=== PATIENT | female | born 1965 | race Caucasian/White ===

== ENCOUNTER 2018-10-26 14:45 | Observation (INO) ==
[2018-10-26] MEDS ORDERED: OXYCODONE HCL PO PRN (15:22)
[2018-10-26] MEDS ORDERED: ACETAMINOPHEN PO PRN (15:22)
[2018-10-26] MEDS ORDERED: XANAX PO PRN (15:22)
[2018-10-26] MEDS ORDERED: SODIUM CHLORIDE 0.9% INJ ONE (16:06)
[2018-10-26 17:02] LABS: BASO# 0.03 X1000 (0.0-0.2); BASO% 0.5 % (0.0-0.8); EOS# 0.31 X1000 (0.0-0.7); HEMATOCRIT 38.3 % (37.0-47.0); HEMOGLOBIN 11.7 g/dL (12.0-16.0); LYMPH# 1.79 X1000 (1.2-3.4); LYMPH% 28.9 % (20.5-51.1); MCH 25.3 PG (27-31); MCHC 30.5 g/dL (33-37); MCV 82.7 FL (81-99); MONO# 0.42 X1000 (0.11-0.59); MONO% 6.8 % (1.7-9.3); MPV 9.9 FL (7.4-10.4); NEUT# 3.64 X1000 (1.4-6.5); NEUT% 58.8 % (42.2-75.2); PLT 271 X1000 (130-400); RBC 4.63 XMIL (4.2-5.4); RDW 15.6 % (11.5-14.5); WBC 6.19 X1000 (4.8-10.8)
[2018-10-26] MEDS: TYLENOL PO PRN (17:07)
[2018-10-26] MEDS: ROCEPHIN 1 GM in NS 50 ML IV SCH (17:07)
[2018-10-26] MEDS: LOVENOX SUBQ SCH (17:08)
[2018-10-26] MEDS: XANAX PO SCH (17:17)
[2018-10-26] MEDS: FLAGYL 500 MG/NS 500 MG/100 ML IVPB IV SCH ×2 (17:18→22:45)
[2018-10-26 17:28] LABS: AGAP 14; BUN 7 mg/dL (8-22); CALCIUM 8.6 mg/dL (8.8-10.2); CHLORIDE 98 mmol/L (98-107); COSMO 281; CREATININE 0.6 mg/dL (0.5-0.9); ESTIMATED GFR > 60; GLUCOSE 91 mg/dL (70-104); POTASSIUM 3.4 mmol/L (3.5-5.1); SODIUM 142 mmol/L (136-145); TCO2 30 mmol/L (25-35)
--- NOTE | 2018-10-26 18:49 | Diag Imaging Result Doc PS360 ---
CT ABDOMEN/PELVIS W/WO CONTRAS - 10/26/2018 INDICATION: recurrent diverticulitis COMPARISON: 08/30/2011 FINDINGS: The lung bases are clear and the heart size is normal. The liver, gallbladder, spleen, pancreas, adrenals, and kidneys are normal. No radiodense renal stones. No hydronephrosis or hydroureter. No bowel obstruction or inflammation. Uterus is absent. Urinary bladder and rectum are normal. Bones are intact. IMPRESSION: Negative exam. This exam was performed using automated exposure control, adjustment of mA or kV according to patient size, and/or use of iterative reconstruction technique Electronically signed by David Russell 10/26/2018 6:47 PM
--- NOTE | 2018-10-26 19:50 | HISTORY AND PHYSICAL ---
Mrs. Helena Zelaya is a 53-year-old lady with a history of multiple medical problems including depression, headache secondary to pseudotumor cerebri and gastroesophageal reflux disease who is followed as an outpatient by Dr. Aaron Blum. She presented to the ER with a 3- day history of crampy left lower quadrant abdominal pain in association with nausea, dry heaves, and explosive watery diarrhea. She saw bright red blood in her stools. She reports that the crampy abdominal pain has intensified when she tries to eat, when she tries to eat she has nausea and vomiting. She has had a history of recurrent diverticulitis in the past and has had a partial colon resection. PAST MEDICAL HISTORY: As above. PAST SURGICAL HISTORY: Hysterectomy, , partial colon resection. ALLERGIES: Hydromorphone. FAMILY HISTORY: Noncontributory. SOCIAL HISTORY: She has never smoked. She does consume alcoholic beverages. She is and lives with her spouse. MEDICATIONS: Xanax 1 mg t.i.d., omeprazole 40 mg daily, venlafaxine ER 75 mg daily. REVIEW OF SYSTEMS: She denies any recent weight gain or weight loss.HEENT: No loss of visual or auditory acuity. CV: No chest pain, palpitations or anginal equivalents. Pulmonary: No shortness of breath, PND, orthopnea. GI: No reflux, dysphagia, melena, hematochezia, [ change in bowel habits or rectal bleeding. Endocrine: No polyuria, no polydipsia. No cold or heat intolerance. Skin: No easy bruisability. : No leakage of urine with coughing or laughing . Neuro: No migraines or seizures. PHYSICAL EXAM: This is a acutely ill-appearing 53-year-old lady in no apparent distress. Temperature 98.8 degrees, pulse 70, respirations 24, BP 169/87. HEENT: Fundi with sharp discs and vessels. Pupils equal, round, reactive to light. Extraocular eye movements intact. TMs without bullae. NECK: Supple. No masses, JVD or bruits. CV: Regular rate and rhythm. LUNGS: Clear. ABDOMEN: Marked left lower quadrant tenderness to deep palpation. There is some guarding. She has hypoactive bowel sounds. EXTREMITIES: Without edema. SKIN: No palpable purpura. NEURO: Nonfocal. LABS: Various laboratory studies were obtained. A CBC demonstrated a white count of 6.1, hemoglobin 1.7, hematocrit 38.3, platelet count 271,000. Electrolytes demonstrate sodium 142, potassium 3.4, chloride 98, BUN 7, creatinine 0.6 and glucose 91. ASSESSMENT AND PLAN: 1. Depression. We will continue Effexor XR 75 mg daily and Xanax 1 mg t.i.d. 2. Gastroesophageal reflux disease. We will continue omeprazole 40 mg daily. 3. Abdominal pain. I suspect that she has acute diverticulitis. I will begin clear liquid diet, rehydrate her with normal saline and begin broad-spectrum antibiotics including Rocephin and Flagyl. We will advance her diet as tolerated. Given the patient's comorbid conditions and clinical presentation, I believe that it is reasonable to admit her to the hospital for further evaluation and management of the abdominal pain. At this point in time I anticipate that she will be in the hospital for at least 2 midnights and I will therefore place her in inpatient status. I will begin Lovenox 30 mg subcutaneously daily for DVT prophylaxis. cc: Miguel Machuca MD MTDD
[2018-10-26] MEDS: PHENERGAN IV PRN (21:16)
[2018-10-27] MEDS: TYLENOL PO PRN ×2 (03:31→21:14)
[2018-10-27] MEDS: FLAGYL 500 MG/NS 500 MG/100 ML IVPB IV SCH ×4 (05:41→23:29)
[2018-10-27] MEDS ORDERED: PRILOSEC PO SCH (07:00)
[2018-10-27] MEDS ORDERED: PRINIVIL PO SCH (09:00)
[2018-10-27] MEDS: EFFEXOR XR PO SCH (09:27)
[2018-10-27] MEDS: XANAX PO SCH ×3 (09:27→17:03)
--- NOTE | 2018-10-27 10:47 | PROGRESS NOTE ---
DATE: 10/27/2018 SUBJECTIVE: Ms. Zelaya presented yesterday with left lower quadrant pain, consistent with diverticulitis. Past medical history of longstanding depression, headache secondary to pseudotumor cerebri, gastroesophageal reflux disease. She is having more cramping and loose stools at times. She underwent a CT of the abdomen and pelvis which was a negative exam. She has seen both Dr. Dewitt and Dr. Guillen. I will get Dr. Dewitt to evaluate as well. OBJECTIVE: Temperature is 98.9 degrees, pulse 77, respirations 16, blood pressure 166/99. Pupils are equal and round. Lungs are clear in all lung rivas. Cardiovascular Examination: Regular rhythm and rate without murmur or S3. Abdomen is soft. Skin is warm. She has tenderness in the left lower quadrant. Her urine output was, I think, about a liter. ASSESSMENT AND PLAN: 1. Left lower quadrant discomfort. It appears to be consistent with diverticulitis. Her CT scan was really pretty unremarkable. We will ask Dr. Dewitt to evaluate again. 2. Depression. I will see if I can get her back on her proton pump inhibitor that she takes. She was taking Effexor. I think we have changed her back. I also put her on lactulose 30 mL twice a day. cc: MD Miguel Hunter MD
[2018-10-27] MEDS ORDERED: PROTONIX IV SCH (12:00)
[2018-10-27] MEDS ORDERED: SODIUM CHLORIDE 0.9% INJ SCH (12:00)
--- NOTE | 2018-10-27 12:29 | Diag Imaging Result Doc PS360 ---
KUB ABDOMEN - 10/27/2018 INDICATION: evaluate for constipation or obstruction COMPARISON: CT from 10/26/2018 FINDINGS: There is mild constipation primarily of the ascending colon. No bowel obstruction or free air. No abnormal calcifications. IMPRESSION: Mild constipation but no acute disease. Electronically signed by David Russell 10/27/2018 12:26 PM
--- NOTE | 2018-10-27 12:31 | GASTROENTEROLOGY CONSULTATION ---
DATE: 10/27/2018 REFERRING PHYSICIAN: Aaron Blum MD PRIMARY CARE DOCTOR: Aaron Blum MD REASON FOR CONSULTATION: Abdominal pain left upper quadrant. Constipation and rectal bleeding. HISTORY OF PRESENT ILLNESS: Ms. Zelaya is a 53-year-old female who was admitted on 10/26/2018 with symptoms of worsening left lower quadrant pain, constipation and diarrhea going on for the last 6 weeks. The patient has struggled with altered bowel habits for many years. Her last colonoscopy was more than 3 years ago, which did not show any evidence of any polyps. I will obtain records about that from my office. Prior to that, about 5 years ago she had a part of her colon resected because of recurrent diverticulitis. According to the patient, she has been having nausea, worsening abdominal pain, altered bowel habits in the form of constipation, sensation of incomplete emptying and overflow diarrhea over the last months, but it is worse in the last 6 weeks. She had imaging done with a CT scan during this admission which showed no evidence of diverticulitis or colitis. The patient had noted bright blood in the stools and jean-colored stools. Her last episode was yesterday. She denies any vomiting blood. She denies any nosebleeds. She denies any fevers, rigors, or chills. PAST MEDICAL HISTORY: 1. Depression. 2. Headache. 3. Pseudotumor cerebri. 4. Reflux disease. 5. Constipation. 6. Recurrent diverticulitis requiring partial colon resection. PAST SURGICAL HISTORY: 1. Hysterectomy. 2. section. 3. Partial colon resection done 5 years ago from recurrent diverticulitis. ALLERGIES: Hydromorphone. FAMILY HISTORY: Noncontributory. SOCIAL HISTORY: She has never smoked. She does consume alcoholic beverages occasionally. She is . She lives with her spouse. MEDICATIONS: 1. Xanax 1 mg p.o. t.i.d. 2. Omeprazole 40 mg daily. 3. Venlafaxine 75 mg every day. MEDICATIONS IN THE HOSPITAL: 1. Tylenol. 2. Xanax. 3. Lovenox. 4. Flagyl 5 mg IV q.6 hours. 5. Lactulose 30 mL p.o. b.i.d. 6. Phenergan 12.5 mg IV q.6 hours. 7. Ceftriaxone 1 g IV daily. 8. Venlafaxine 75 mg p.o. daily. 9. Protonix 40 g IV once daily. I just started that and discontinued Prilosec once daily. She is currently on clear liquid diet. REVIEW OF SYSTEMS: Denies any current fevers, rigors, chills, chest pain, shortness of breath, dyspnea. Denies any vomiting blood. Does complain of feeling nausea and abdominal pain and changes in bowel habits. Does have history of weight gain. She has gained about 15 pounds in the last few years. She denies any nosebleeds, or gum bleeds. She has history of anxiety and depression. PHYSICAL EXAMINATION: Vital signs: Temperature 98.3 degrees, pulse of 67, respiratory rate 18, blood pressure 163/72, saturating 100% on room air. General appearance: Moderately obese, lying in bed, in no acute distress. HEENT: No pallor. No icterus. Pupils equal, reactive to light. Neck: Supple. Abdomen: Protuberant, tympanic on percussion. Mild distention noted. No rebound or guarding. Extremities: Her abdomen has discomfort in the left lower quadrant and periumbilical region. No rebound or guarding. Extremities: No cyanosis, clubbing, edema. Neurologic: She is alert, awake, oriented. WEIGHT: Body weight of 204 pounds, BMI 41.2. LABORATORIES: Hemoglobin and hematocrit 11.7 and 38.3, white count 6.19, platelet count of 271,000, MCV of 82.7. Sodium 142, potassium 3.4, chloride 98, bicarb 30, anion gap of 14, BUN of 7, creatinine 0.6, glucose of 91, calcium is 8.6. IMAGING: She had a CT scan of the abdomen and pelvis done which showed no bowel obstruction or inflammation. Uterus is absent. IMPRESSION AND PLAN: 1. Left lower quadrant pain. 2. Altered bowel habits. Feels constipated and had some episodes of diarrhea. 3. Rectal bleeding. 4. Mucus in the stool and change in color of stools. 5. History of previous diverticulitis. She had a partial colectomy done 5 years ago. 6. Last scope was done 3 years ago. It was done by me. We will obtain records. 7. Depression and anxiety. 8. Nausea. RECOMMENDATIONS: 1. We will keep the patient on clear liquid diet today. We will change her to Protonix once daily. We will start her on GoLYTELY and schedule for colonoscopy tomorrow by Dr. Borden. The risks, benefits, indications, alternatives were discussed with the patient. We will also give her 2 soapsuds enemas to help improve the bowel frequency. We have discontinued omeprazole and started her on Protonix once daily. 2. Deep venous thrombosis prophylaxis with Lovenox. 3. Gastrointestinal prophylaxis with proton pump inhibitor. 4. We will check a KUB in the morning. Further recommendations to follow pending the hospital course. The above plans were discussed with the patient and all questions answered. Please call us with any further questions. cc: MD Miguel Sabillon MD Allen J. Schmidt, MD
[2018-10-27] MEDS: LACTULOSE PO SCH ×2 (12:42→23:30)
[2018-10-27] MEDS ORDERED: GOLYTELY PO ONE (14:00)
[2018-10-27] MEDS: LOVENOX SUBQ SCH (16:52)
[2018-10-27] MEDS: ROCEPHIN 1 GM in NS 50 ML IV SCH (16:54)
[2018-10-27] MEDS ORDERED: NS 500 ML ONE (18:25)
[2018-10-27] MEDS: PHENERGAN IV PRN (21:14)
[2018-10-28] MEDS: FLAGYL 500 MG/NS 500 MG/100 ML IVPB IV SCH (05:05)
[2018-10-28] MEDS ORDERED: XYLOCAINE-MPF 2% ONE (07:02)
[2018-10-28] MEDS ORDERED: DIPRIVAN 1% ONE (07:03)
--- NOTE | 2018-10-28 08:36 | OPERATIVE NOTE ---
PROCEDURE DATE: 10/28/2018 PROCEDURE: Colonoscopy. PROVIDER: Aubrey Borden MD INDICATIONS: Left lower quadrant abdominal pain, alternating diarrhea, constipation and rectal bleeding. MEDICATIONS: Monitored anesthesia care. DESCRIPTION OF PROCEDURE: Prior to the procedure, a history and physical was performed. The patient's medication and allergies were reviewed. The patient's tolerance to previous anesthesia was also reviewed. The risks and benefits of the procedure, and the sedation, options and risks were discussed with the patient. All questions were answered and informed consent was obtained. After reviewing the risks and benefits, the patient was deemed in satisfactory condition to undergo the procedure. The colonoscope was passed under direct visualization. Throughout the procedure, the patient's blood pressure, pulse and oxygen saturations were monitored continuously. The colonoscope was introduced through the anus and advanced to the cecum identified by the appendiceal orifice and ileocecal valve. The colonoscopy was accomplished without difficulty. The quality of the prep was adequate. The patient tolerated the procedure well. COMPLICATIONS: No immediate complications. ESTIMATED BLOOD LOSS: None. FINDINGS: An end to end anastomosis in the left colon was healthy appearing. There was no evidence of strictures or narrowing. The rest of the colon appeared normal. Small internal hemorrhoids were seen on retroflexion in the rectum. IMPRESSION: Small internal hemorrhoids. RECOMMENDATIONS: Resume regular diet. The etiology of patient's symptoms appear to be functional. She should follow up in the GI Clinic with Dr. Dewitt in 1 to 2 weeks after discharge. The patient is okay to be discharged from a GI perspective. We will sign off. Please call with any questions or concerns. cc: Miguel Machuca MD
[2018-10-28 09:13] VITALS: BP 176/96
--- NOTE | 2018-10-28 09:51 | DISCHARGE SUMMARY ---
ADMISSION DATE: 10/26/2018 DISCHARGE DATE: 10/28/2018 HISTORY OF PRESENT ILLNESS: A 53 year old with a history of multiple medical problems including depression, headache, pseudotumor cerebri, gastroesophageal reflux. She has been having trouble with left lower quadrant pain. We have been treating her for diverticulitis, but she does have known irritable bowel syndrome. PAST SURGICAL HISTORY: 1. Hysterectomy. 2. . 3. Partial colon resection. ALLERGIES: Hydromorphone. HOSPITAL COURSE: We put her on some empiric antibiotic and we did note that her abdominal pelvic CT done on 10/26 was a negative exam, except there was stool in the sigmoid colon. Otherwise, no sign of obstruction or inflammation. Dr. Dewitt saw her. Dr. Borden did a colonoscopy. They found no inflammation and very minimal amount of diverticula, so felt like that her pain was from irritable bowel syndrome. DISPOSITION: We will discharge her home. DISCHARGE MEDICATIONS: She will take the Xanax 1 mg t.i.d., Singulair 10 mg a day, Prilosec 40 mg a day, and she will go back on her Pristiq. I am going to have her on Colace 100 mg twice a day and lactulose 30 mL twice a day. PLAN: See her back in my office in a couple weeks. She will follow up with Dr. Dewitt and Dr. Borden in a couple weeks as well. cc: MD Miguel Hunter MD
[2018-10-28] MEDS: EFFEXOR XR PO SCH (09:53)
[2018-10-28] MEDS: LACTULOSE PO SCH (09:54)
[2018-10-28] MEDS: XANAX PO SCH (09:58)
== END 2018-10-28 10:44 | disposition home or self-care (01) ==
LOC: ED 14:45 → 4N 14:46 → INTOOBSV 14:46
PROVIDERS: ADMIT Internal Medicine; ATTEND Emergency Medicine
CPT/HCPCS: 74000; 74018; 74178; 80048; 85025; 96365; 96366; 96372; 96375; 96376; 99284; A9270; C9113; G0378; J0696; J1650; J2550; J7040; Q9967; S0030; S0164